=== PATIENT | female | born 1965 | race Caucasian/White ===

== ENCOUNTER 2018-08-06 13:18 | Emergency (ER) | payer OTHER ==
--- NOTE | 2018-08-06 13:19 | UC ---
Hand/Wrist HPI - HPI Summary HPI Summary: 53 yo female presents with puncture wound to right hand. She tells me that about 90min [employer] she sustained a puncture wound to her right hand when she lost her balance and fell into an engine compartment. She washed the area with soap and water and came to . She is unsure the date of her last tetanus. She is right handed. - History Of Current Complaint Stated Complaint: HAND INJURY Time Seen by Provider: 08/06/18 13:19 Hx Obtained From: Patient Onset/Duration: Sudden Onset - Allergies/Home Medications Allergies/Adverse Reactions: Allergies Allergy/AdvReac Type Severity Reaction Status Date / Time midazolam [From Versed] Allergy Unknown Verified 08/06/18 13:28 Reaction Details morphine Allergy Itching Verified 08/06/18 13:28 Penicillins Allergy Hives Verified 08/06/18 13:28 aspirin AdvReac Abdominal Verified 08/06/18 13:28 Pain NSAIDS (Non-Steroidal AdvReac Abdominal Verified 08/06/18 13:28 Anti-Inflamma Pain paco Allergy Itching Uncoded 08/06/18 13:28 Home Medications: Home Medications DULoxetine DR CAP* [Cymbalta CAP*] 60 mg PO DAILY 08/06/18 [History Confirmed ] Docusate CAP* [Colace Cap*] 300 mg PO DAILY 08/06/18 [History Confirmed 08/06/18 ] LORazepam [Ativan 0.5 MG TAB] 0.5 mg PO DAILY PRN 08/06/18 [History Confirmed ] Montelukast Sodium TAB* [Singulair TAB*] 10 mg PO DAILY 08/06/18 [History Confirmed 08/06/18] Omeprazole 20 mg PO DAILY 08/06/18 [History Confirmed 08/06/18] Ondansetron [Ondansetron Odt] 4 mg PO DAILY PRN 08/06/18 [History Confirmed 08/20] Oxycodone TAB(NF) [Oxycodone HCl 10 MG] 30 mg PO Q6H PRN 08/06/18 [History Confirmed 08/06/18] amLODIPine TAB* [Norvasc 5 mg TAB*] 10 mg PO DAILY 08/06/18 [History Confirmed 08/06/18] rOPINIRole TAB* [Requip TAB*] 4 mg PO DAILY 08/06/18 [History Confirmed 08/06/18 ] PMH/Surg Hx/FS Hx/Imm Hx - Additional Past Medical History Additional PMH: Chronic pain Cardiovascular History: Hypertension GI/ History: Gastroesophageal Reflux Neurological History: Dementia Psychological History: Anxiety - Family History Known Family History: Positive: Hypertension - Social History Lives: With Family Alcohol Use: Occasionally Substance Use Type: None Smoking Status (MU): Light Every Day Tobacco Smoker Type: Cigarettes Review of Systems All Other Systems Reviewed And Are Negative: Yes Constitutional: Positive: Negative Skin: Positive: Other - right hand puncture wound Respiratory: Positive: Negative Cardiovascular: Positive: Negative Neurological: Positive: Negative Psychological: Positive: Negative Physical Exam - Summary Physical Exam Summary: GENERAL: NAD. WDWN. No pain distress. SKIN: RIGHT HAND: over the dorsal aspect web spacing between the 1st and 2nd digit there is a 4mm puncture wound with mild surround edema. No erythema, ecchymosis, or FB appreciated. Wound appears clean. CHEST: No accessory muscle use. Breathing comfortably and in no distress. CV: Pulses intact. Cap refill <2seconds MSK: FROM with no pain at right 1st and 2nd digit. NEURO: Alert. PSYCH: Age appropriate behavior. Triage Information Reviewed: Yes Vital Signs: Vital Signs: Temp Pulse Resp BP Pulse Ox 98 F 80 18 160/98 96 08/06/18 13:32 08/06/18 13:32 08/06/18 13:32 08/06/18 13:32 08/06/18 13:32 Vital Signs Reviewed: Yes Hand/Wrist Course/Dx - Course Course Of Treatment: tdap updated today. Area irrigated with NS and steri strip placed. Will start her on antibiotics for prophylactic infection - pt states that doxycycline is one of the few antibiotics she tolerates well and is not allergic to. - Differential Dx/Diagnosis Provider Diagnosis: Puncture wound of right hand Discharge - Sign-Out/Discharge Documenting (check all that apply): Patient Departure All imaging exams completed and their final reports reviewed: No Studies - Discharge Plan Condition: Stable Disposition: HOME Prescriptions: DOXYcycline CAP(*) [DOXYcycline 100MG CAP(*)] 100 mg PO BID #14 cap Patient Education Materials: Puncture Wound (DC) Referrals: No Primary Care Phys,NOPCP [Primary Care Provider] - Additional Instructions: If you develop a fever, shortness of breath, chest pain, new or worsening symptoms - please call your PCP or go to the ED immediately. Your blood pressure was high at todays visit. Please see your primary provider within 4 weeks for recheck and re-evaluation. 1) Keep the area covered with a band-aid until well healed...likely 5-7 days 2) If you notice any streaking redness, increased swelling, or colored drainage - please be rechecked - Billing Disposition and Condition Condition: STABLE Disposition: Home
[2018-08-06] MEDS ORDERED: Tetan/Diph/Pertus SYR(Tdap)* 0.5 ML SYR(BOOSTRIX) use SYR IM ONE (13:46)
== END 2018-08-06 14:30 | disposition home or self-care (01) ==
LOC: UCEAST 13:18
DX: S61.431A Puncture wound without foreign body of right hand, initial encounter (principal); W26.8XXA Contact with other sharp object(s), not elsewhere classified, initial encounter; Y92.9 Unspecified place or not applicable; Z23 Encounter for immunization; G89.29 Other chronic pain; I10 Essential (primary) hypertension; K21.9 Gastro-esophageal reflux disease without esophagitis; F03.90 Unspecified dementia, unspecified severity, without behavioral disturbance, psychotic disturbance, mood disturbance, and anxiety; F41.9 Anxiety disorder, unspecified; Z88.6 Allergy status to analgesic agent; Z88.5 Allergy status to narcotic agent; Z88.0 Allergy status to penicillin; Z88.8 Allergy status to other drugs, medicaments and biological substances; Z91.048 Other nonmedicinal substance allergy status; F17.210 Nicotine dependence, cigarettes, uncomplicated
CPT/HCPCS: 90471; 90715; 99202; G0463

== ENCOUNTER 2018-10-10 20:22 | Emergency (ER) | payer OTHER ==
--- NOTE | 2018-10-10 20:54 | ED ---
Complex/Multi-Sys Presentation - HPI Summary HPI Summary: This patient is a 53 year old F presenting to [facility] by EMS with a chief complaint of cramping leg pain, abdominal pain, and chest pain prior to arrival. The chest pain, which felt like something sitting on her chest began around 5-6 but has since mostly resolved. Pain began after her legs began to hurt and she states that sometime she gets pain all over when this happens. No cardiac hx, hx [place] or CHF, no hx blood clots. No recent stress test. No SOB. Does not smoke. by Pt has PMHx of cramping restless leg syndrome, and reports the pain in her leg feels like cramping restless leg syndrome but worse. Also reporting burning abdominal pain that is similar to her prior ulcers. No bloody or dark stools. Has not taken medications for her ulcers. Pt denies vomiting. Per triage, the patient rates the pain 10/10 in severity. Hx oxycodone use for many years, working on cutting down with her PCP (was taking QID, now TID, will start BID tomorrow). Ran out this am and has apt to see PCP tomorrow. Per triage, Pt. arrives yelling and screaming hyperventilating. Able to answere all questions and calms for brief periods. Reports muscle cramping in legs and abd. Pt. has been boating today with little to drink. VSS, pt. reports not taking scheduled dose of oxycodone this afternoon. - History Of Current Complaint Chief Complaint: EDExtremityLower Time Seen by Provider: 10/10/18 20:42 Onset/Duration: Lasting Hours, Still Present Timing: Constant, Hours Severity Currently: Severe Severity Initially: Severe Associated Signs And Symptoms: Positive: Chest Pain, Other - pos - abdominal pain, leg pain. Negative: Vomiting - Allergies/Home Medications Allergies/Adverse Reactions: Allergies Allergy/AdvReac Type Severity Reaction Status Date / Time midazolam [From Versed] Allergy Unknown Verified 08/06/18 13:28 Reaction Details morphine Allergy Itching Verified 08/06/18 13:28 Penicillins Allergy Hives Verified 08/06/18 13:28 aspirin AdvReac Abdominal Verified 08/06/18 13:28 Pain NSAIDS (Non-Steroidal AdvReac Abdominal Verified 08/06/18 13:28 Anti-Inflamma Pain paco Allergy Itching Uncoded 08/06/18 13:28 PMH/Surg Hx/FS Hx/Imm Hx Respiratory History: Reports: Hx Asthma Sensory History: Denies: Hx Legally Blind Opthamlomology History: Denies: Hx Legally Blind EENT History: Denies: Hx Deafness - Surgical History Surgery Procedure, Year, and Place: brandi en y 2x, 2001. x2. tubal ligation. venous stripping on R leg. inguinal hysterectomy 2007. umbilical hernia repair. hernia repair. gallbladder. appendectomy Infectious Disease History: No Infectious Disease History: Denies: Traveled Outside the [place] in Last 30 Days - Family History Known Family History: Positive: Hypertension - Social History Alcohol Use: Occasionally Hx Substance Use: No Substance Use Type: Reports: None Smoking Status (MU): Light Every Day Tobacco Smoker Type: Cigarettes Review of Systems Constitutional: Negative Eyes: Negative Positive: Chest Pain Positive: Abdominal Pain. Negative: Vomiting Genitourinary: Negative Positive: Other - pos - leg pain Skin: Negative Neurological: Negative Positive: Anxious All Other Systems Reviewed And Are Negative: Yes Physical Exam - Summary Physical Exam Summary: Constitutional: Well-developed, Well-nourished, Alert. Distressed, Restless, intermittently screaming Skin: Warm, Dry HENT: Normocephalic; Atraumatic Eyes: Conjunctiva normal Neck: Musculoskeletal ROM normal neck. (-) JVD, (-) Stridor, (-) Tracheal deviation Cardio: Rhythm regular, rate normal, Heart sounds normal; Intact distal pulses; Radial pulses are 2+ and symmetric. (-) Murmur Pulmonary/Chest wall: Effort normal. (-) Respiratory distress, (-) Wheezes, (-) Rales Abd: Soft, (-) tenderness, (-) Distension, (-) Guarding, (-) Rebound Musculoskeletal: (-) Edema, tenderness to palpation of bilat calves Lymph: (-) Cervical adenopathy Neuro: Alert, Oriented x3 Psych: anxious, restless. Triage Information Reviewed: Yes Vital Signs On Initial Exam: Initial Vitals Temp Pulse Resp BP Pulse Ox 97.6 F 101 28 170/101 100 10/10/18 20:34 10/10/18 20:34 10/10/18 20:34 10/10/18 20:34 10/10/18 20:34 Vital Signs Reviewed: Yes Diagnostics - Vital Signs Vital Signs Temp Pulse Resp BP Pulse Ox 10/10/18 20:34 97.6 F 101 28 170/101 100 - Laboratory Result Diagrams: 10/10/18 21:39 10/10/18 21:39 Lab Statement: Any lab studies that have been ordered have been reviewed, and results considered in the medical decision making process. - EKG 2045 EKG Rhythm: Sinus Rhythm Summary of EKG Findings: An EKG at 2045 reveals HR 91 bpm, sinus, no ischemic changes, poor baseline secondary to pt movement. Complex Multi-Symp Course/Dx Course Of Treatment: This patient is a 53 year old F with a history of gastric bypass, chronic pain on narcotics, restless leg syndrome and anxiety who presents with multiple complaints: 1.Abdominal burning pain, suspects is secondary to GERD as she has had in the past, abd is soft, we will try a GI cocktail and reassess. Lipase normal, no white count. Hb stable. 2.Restless legs, pt reports a Hx of restless legs on requipe, will try PO valium x1 given muscle cramping, as well as IV fluids as she had poor PO intake today. 3.Chest pain, reported chest pain earlier in day that has resolved pain not exertional, low suspicion for cardiac cause. EKG although poor quality 2/2 movement does not show evidence of ischemia. Will check troponin x1. Heart score 3. 4.Opioid use disorder. Pt has a history of chronic narcotic use is currently being weaned down on oxycodone to BID, ran out this morning. Discussed with pt we will give her a 1 time does percocet however she will follow up with PCP. After one percocet patient states she felt much better and would like to leave. instructed to f/u w PCP tmrw and return for worsening symptoms. Patient and s/o understood. - Diagnoses Provider Diagnoses: Leg cramp, Opioid use disorder, Reflux gastritis, Atypical chest pain Discharge - Sign-Out/Discharge Documenting (check all that apply): Patient Departure - Discharge Patient Received Moderate/Deep Sedation with Procedure: No - Discharge Plan Condition: Stable Disposition: HOME Patient Education Materials: Chest Pain (ED), Gastroesophageal Reflux Disease ( ED), Leg Cramps (ED), Opioid Use Disorder (ED) Referrals: No Primary Care Phys,NOPCP [Primary Care Provider] - Additional Instructions: Follow up with Dr. Marissa Laguna MD within 1 day. RETURN TO THE ED FOR NEW OR WORSENING SYMPTOMS - Billing Disposition and Condition Condition: STABLE Disposition: Home - Attestation Statements Document Initiated by Carrol: Yes Documenting Scribe: Shirin An Provider For Whom Carrol is Documenting (Include Credential): Dr. Edgard Ahumada MD Scribe Attestation: Shirin Romeo, scribed for Dr. Edgard Ahumada MD on 10/13/18 at 0956. Scribe Documentation Reviewed: Yes Provider Attestation: The documentation as recorded by the Shirin alexis accurately reflects the service I personally performed and the decisions made by , Dr. Edgard Ahumada MD Status of Scribe Document: Viewed
[2018-10-10] MEDS ORDERED: Diazepam TAB(*) 5 MG PO ONE (20:55)
[2018-10-10] MEDS ORDERED: Lactated Ringers 1000 ML Bag* 1,000 ML IV SCH (21:00)
[2018-10-10 21:44] LABS: ABS Lymphocytes 1.1 10^3/ul (1.0-4.8); ABS Monocytes 0.6 10^3/ul (0-0.8); ABS Neutrophils 6.1 10^3/ul (1.5-7.7); Eosinophil % 0.3 %; Hematocrit 47 % (35-47); Hemoglobin 15.8 g/dL (12.0-16.0); Lymphocyte % 14.6 %; Mean Corpuscular HGB Conc 34 g/dL (31-36); Mean Corpuscular Hemoglobin 31 pg (27-31); Mean Corpuscular Volume 92 fL (80-97); Mean Platelet Volume 7.1 fL (7.4-10.4); Platelet Count 311 10^3/uL (150-450); Red Blood Count 5.14 10^6 /uL (3.70-4.87); Red Cell Distribution Width 14 % (10-15); White Blood Count 7.9 10^3/uL (3.5-10.8)
[2018-10-10] MEDS ORDERED: Lidocaine 2% VISCOUS* 15 ML UDC PO ONE (21:51)
[2018-10-10] MEDS ORDERED: oxyCODONE/Acetamin 5/325 MG* TAB PO ONE (21:54)
[2018-10-10] MEDS ORDERED: Al Hydrox/Mg Hydrox/Simet LIQ* 30 ML UDC PO ONE (21:59)
[2018-10-10 22:02] LABS: Albumin 4.4 g/dL (3.2-5.2); Albumin/Globulin Ratio 1.8 (1-3); BUN/Creatinine Ratio 11.6 (8-20); Calcium 9.6 mg/dL (8.6-10.3); EGFR African American 106.9 (>60); EGFR Non-African American 88.3 (>60); Globulin 2.5 g/dL (2-4); Potassium 3.8 mmol/L (3.5-5.0); Total Bilirubin 0.6 mg/dL (0.2-1.0); Total Protein 6.9 g/dL (6.4-8.9)
[2018-10-10 22:53] VITALS: BP 141/81
== END 2018-10-10 22:52 | disposition home or self-care (01) ==
LOC: ED 20:22
DX: R25.2 Cramp and spasm (principal); R07.89 Other chest pain; K29.60 Other gastritis without bleeding; F11.10 Opioid abuse, uncomplicated; F17.210 Nicotine dependence, cigarettes, uncomplicated; Z88.5 Allergy status to narcotic agent; Z88.0 Allergy status to penicillin; Z88.8 Allergy status to other drugs, medicaments and biological substances
CPT/HCPCS: 36415; 80053; 83690; 84484; 85025; 93005; 99283; A9270-GY

== ENCOUNTER 2019-06-18 11:46 | Emergency (ER) | payer OTHER ==
--- OUTSIDE RECORDS SUMMARY | 2019-06-18 15:53 | XMS REPORT ---
:1965 Author Organization [facility] Care Team Providers Name Role Phone SkyeChasity tinsley Primary Care Physician Unavailable Allergies, Adverse Reactions, Alerts Allergy Code CodeSystem Reaction Severity Criticality Status Start Substance Date Moderate Medications Medication Medication Medication Start Stop Route Dose Status Fill Code CodeSystem Date Date Instructions RxNorm Relevant diagnostic tests/laboratory data Narrative No Information Procedures Procedure Code CodeSystem Target Date of Status Service Device Device Device Name Site Procedure Delivery Code Name UID Location Psychother 4509295 TrippifiOMED-CT () 2019-04-03 completed Mental apy, 45 4 Health- minutes [facility] patient [address], [place], [id number] Encounters/Encounter Diagnoses Encounter Name Encounter Diagnosis Diagnosis Diagnosis Date of Service Code Code Name CodeSystem Diagnosis Delivery Location Psychotherapy - 82734 SNOMED-CT 2019-04-03 Behavioral Individual [facility] [address], [place], [phone] Vital Signs No Information Social History Element Description Description Start End Code CodeSystem AdditionalInfo Date Date SexAssignedAtBirth Female 1964-1 F AdministrativeGender 0-18 Hospital Discharge Instructions Reason For Referral Medical Equipment FDA Assessments
[2019-06-18 16:00] VITALS: BP 143/91
--- NOTE | 2019-06-18 16:26 | UC ---
FLU HPI - HPI Summary HPI Summary: 54 year old female presents with 3 day history of productive cough. States sputum was initially clear but has become thick and green. States today started with nasal congestion and sinus pressure. History of asthma. Has used albuterol inhaler a couple times since onset of symptoms. No recent travel. Denies fever, chills, ear pain, sore throat, chest pain, abdominal pain, N/V/D. - History of Current Complaint Chief Complaint: UCRespiratory Stated Complaint: COUGH,CONGESTION Time Seen by Provider: 06/18/19 16:05 Hx Obtained From: Patient Pain Intensity: 0 - Allergy/Home Medications Allergies/Adverse Reactions: Allergies Allergy/AdvReac Type Severity Reaction Status Date / Time midazolam [From Versed] Allergy Unknown Verified 06/18/19 16:00 Reaction Details morphine Allergy Itching Verified 06/18/19 16:00 Penicillins Allergy Hives Verified 06/18/19 16:00 aspirin AdvReac Abdominal Verified 06/18/19 16:00 Pain NSAIDS (Non-Steroidal AdvReac Abdominal Verified 06/18/19 16:00 Anti-Inflamma Pain paco Allergy Itching Uncoded 06/18/19 16:00 Home Medications: Home Medications DULoxetine DR CAP* [Cymbalta CAP*] 60 mg PO DAILY 08/06/18 [History Confirmed ] Docusate CAP* [Colace Cap*] 300 mg PO DAILY 08/06/18 [History Confirmed 06/18/19 ] LORazepam [Ativan 0.5 MG TAB] 0.5 mg PO DAILY PRN 08/06/18 [History Confirmed ] Montelukast Sodium TAB* [Singulair TAB*] 10 mg PO DAILY 08/06/18 [History Confirmed 06/18/19] Omeprazole 20 mg PO DAILY 08/06/18 [History Confirmed 06/18/19] Ondansetron [Ondansetron Odt] 4 mg PO DAILY PRN 08/06/18 [History Confirmed ] amLODIPine TAB* [Norvasc 5 mg TAB*] 10 mg PO DAILY 08/06/18 [History Confirmed 06/18/19] rOPINIRole TAB* [Requip TAB*] 4 mg PO DAILY 08/06/18 [History Confirmed 06/18/19 ] Benzonatate CAP* [Tessalon 100 MG CAP*] 100 mg PO TID PRN #21 cap 06/18/19 [Rx] Buprenorp/Nalox 2-0.5 MG SL TB [Suboxone 2-0.5 mg SL TAB*] 1 each SL 06/18/19 [ History Confirmed 06/18/19] Doxycycline Hyclate 100 mg PO BID #14 tablet 06/18/19 [Rx] PMH/Surg Hx/FS Hx/Imm Hx Cardiovascular History: Hypertension GI/ History: Gastroesophageal Reflux Psychological History: Anxiety, Depression - Surgical History Surgical History: Yes Surgery Procedure, Year, and Place: brandi en y 2x, 2000. x2. tubal ligation. venous stripping on R leg. inguinal hernia. hysterectomy 2007. umbilical hernia repair. hernia repair. gallbladder. appendectomy - Family History Known Family History: Positive: Hypertension - Social History Occupation: Unemployed Lives: With Family Alcohol Use: Occasionally Substance Use Type: Other Substance Use Comment - Amount & Last Used: rx medical marijuana Smoking Status (MU): Light Every Day Tobacco Smoker Type: Cigarettes Household Exposure Type: Cigarettes Review of Systems All Other Systems Reviewed And Are Negative: Yes Constitutional: Negative: Fever, Chills Skin: Negative: Rash Eyes: Negative: Drainage, Eye Redness ENT: Positive: Sinus Congestion, Sinus Pain/Tenderness. Negative: Sore Throat, Ear Ache, Nasal Discharge Respiratory: Positive: Cough. Negative: Shortness Of Breath Cardiovascular: Negative: Chest Pain Gastrointestinal: Negative: Abdominal Pain, Vomiting, Diarrhea, Nausea Genitourinary: Positive: Negative Musculoskeletal: Positive: Negative Neurological/Mental Status: Positive: Negative Is Patient Immunocompromised?: No Physical Exam - Summary Physical Exam Summary: GENERAL APPEARANCE: Alert and cooperative adult female who appears to be in no acute distress. EYES: Conjunctiva clear. No drainage. EARS: External auditory canals and tympanic membranes clear, hearing grossly intact. NOSE: Mild-moderate nasal congestion. No nasal discharge. Maxillary sinus tenderness. THROAT: Pharyngeal cobblestoning. No tonsilar inflammation, swelling, exudate, or lesions. Uvula midline. NECK: Neck supple, non-tender without lymphadenopathy. CARDIAC: Normal S1 and S2. No S3, S4 or murmurs. Rhythm is regular. There is no peripheral edema, cyanosis or pallor. Extremities are warm and well perfused. Capillary refill is less than 2 seconds. Peripheral pulses intact. LUNGS: Clear to auscultation without rales, rhonchi, wheezing or diminished breath sounds. Dry, non-productive cough. ABDOMEN: Positive bowel sounds. Soft, nondistended, nontender. No guarding or rebound. No masses or hepatosplenomegally. MUSKULOSKELETAL: ROM intact to all extremities. No joint erythema or tenderness. Normal muscular development. Normal gait. SKIN: Skin normal color, texture and turgor with no lesions or eruptions. Triage Information Reviewed: Yes Vital Signs: Initial Vital Signs Pulse 77 06/18/19 15:56 Resp 16 06/18/19 15:56 BP 143/91 06/18/19 15:56 Vital Signs Reviewed: Yes Flu Course/Dx - Course Course Of Treatment: 54 year old female presents with 3 day history of productive cough. States sputum was initially clear but has become thick and green. States today started with nasal congestion and sinus pressure. History of asthma. Has used albuterol inhaler a couple times since onset of symptoms. No recent travel. Denies fever, chills, ear pain, sore throat, chest pain, abdominal pain, N/V/D. Afebrile. Mildly hypertensive otherwise VSS. Patient had mild-moderate nasal congestion, maxillary sinus tenderness, pharyngeal cobblestoning without tonsilar swelling or exudate, no cervical lymphadenopathy, clear bilateral breath sounds, dry, non -productive cough, and otherwise unremarkable exam. Rapid strep and rapid flu tests were negative. Reviewed results with patient and discussed that her symptoms were likely a viral URI however patient states that she has history of rapidly progressive bronchitis and is requesting treatment with an antibiotic. We discussed the risks and benefits of treating with an antibiotic especially if illness is viral in origin. States she would still like to start on an antibiotic. Will treat her with doxycycline 100 mg 1 tab twice a day for 7 days and recommend symptomatic treatment including Tessalon Perles 1 capsule every 8 hours as needed for cough. She is to follow up with her PCP in 5-7 days if symptoms persist. Anticipatory guidance and warning symptoms were reviewed with patient. Verbalizes understanding and agrees with POC. - Differential Dx/Diagnosis Differential Diagnosis/HQI/PQRI: Bronchitis, Influenza, Pneumonia, Upper Respiratory Infection Provider Diagnosis: Upper respiratory infection with cough and congestion Discharge ED - Sign-Out/Discharge Documenting (check all that apply): Patient Departure All imaging exams completed and their final reports reviewed: No Studies - Discharge Plan Condition: Stable Disposition: HOME Prescriptions: Benzonatate CAP* [Tessalon 100 MG CAP*] 100 mg PO TID PRN #21 cap PRN Reason: Cough Doxycycline Hyclate 100 mg PO BID #14 tablet Patient Education Materials: Upper Respiratory Infection (ED) Referrals: Anali Ann PRESERVATIVE F[employer]ER MACHINE OPERATOR [Primary Care Provider] - Additional Instructions: The rapid strep test and rapid flu test performed in the clinic today were negative. Your history and exam are consistent with an upper respiratory infection with cough. Start doxycycline 100 mg 1 tab twice a day for 7 days. Use a saline rinse kit such as Neti Pot or NeilMed at least twice a day to help thin secretions and promote drainage of the sinuses. Use fluticasone (Flonase) nasal spray 2 sprays each nostril once daily. Use Tessalon Perles 1 capsule every 8 hours as needed for cough. Take over the counter acetaminophen (Tylenol) or ibuprofen (Advil, Motrin) according to directions as needed for pain or fever. Follow up with your primary care provider in 5-7 days if symptoms persist. Seek immediate medical attention in the emergency room if you have fever greater than 100.5 F despite taking acetaminophen or ibuprofen, have chest pain , difficulty breathing, are unable to swallow, or have any worsening of symptoms. - Billing Disposition and Condition Condition: STABLE Disposition: Home
[2019-06-18 16:38] LABS: Influenza A Molecular Negative (Negative); Influenza B Molecular Negative (Negative)
== END 2019-06-18 16:56 | disposition home or self-care (01) ==
LOC: UCEAST 11:46
DX: J06.9 Acute upper respiratory infection, unspecified (principal); R05 Cough; R09.81 Nasal congestion; J45.909 Unspecified asthma, uncomplicated; I10 Essential (primary) hypertension; K21.9 Gastro-esophageal reflux disease without esophagitis; F32.9 Major depressive disorder, single episode, unspecified; F41.9 Anxiety disorder, unspecified; Z79.899 Other long term (current) drug therapy; F17.210 Nicotine dependence, cigarettes, uncomplicated; Z88.0 Allergy status to penicillin; Z88.6 Allergy status to analgesic agent; Z88.5 Allergy status to narcotic agent; Z91.09 Other allergy status, other than to drugs and biological substances; Z88.8 Allergy status to other drugs, medicaments and biological substances
CPT/HCPCS: 87651; 99212; G0463